=== PATIENT | female | born 1970 | race Caucasian/White ===

== ENCOUNTER 2022-06-14 07:54 | Day surgery (SDC) | payer BC ==
[~2022-06-14 07:54] MED LIST: Acetaminophen 325 MG Tab PO SCH; Bupivacaine 0.25% 10 ML SDV ONE; Lactated Ringers 1,000 ML IV SCH; Lidocaine 1%/Sod Bicarbonate in NS 8.4% 1 ML Syringe IDERM PRN; Morphine 8 MG, EPINEPHrine 0.3 MG, Cefuroxime 750 MG, Ketorolac 30 MG, Sodium Chloride ... PRN; Pregabalin 25 MG Cap PO SCH; Sodium Chloride 0.9% 10 ML Syringe FLUSH PRN; Sodium Chloride 0.9% 10 ML Syringe FLUSH SCH; Triamcinolone Acetonide 40 MG/ML 1 ML SDV ONE; oxyCODONE ER 10 MG TAB.ER PO SCH
[2022-06-14] MEDS ORDERED: Propofol 200 MG/20 ML SDV ONE ×2 (08:16)
[2022-06-14] MEDS ORDERED: ceFAZolin 2 GM Vial ONE (08:17)
[2022-06-14] MEDS ORDERED: fentaNYL 100 MCG/2 ML SDV ONE (08:17)
[2022-06-14] MEDS ORDERED: Lidocaine 1% 4 ML ONE (08:17)
[2022-06-14] MEDS ORDERED: Midazolam 1 MG/ML 2 ML SDV ONE (08:17)
[2022-06-14] MEDS ORDERED: Scopolamine 1.5 MG Transdermal Patch TRDERM ONE (08:25)
[2022-06-14] MEDS ORDERED: Lactated Ringers 1,000 ML ONE (09:20)
[2022-06-14] MEDS ORDERED: ePHEDrine 50 MG/ML SDV ONE (09:38)
[2022-06-14] MEDS ORDERED: Ondansetron 4 MG/2 ML SDV ONE (09:44)
[2022-06-14] MEDS ORDERED: Ketorolac 30 MG/ML SDV ONE (09:44)
[2022-06-14] MEDS ORDERED: Ondansetron 4 MG/2 ML SDV IVPUSH PRN (09:47)
[2022-06-14] MEDS ORDERED: fentaNYL 100 MCG/2 ML SDV IVPUSH PRN (09:47)
[2022-06-14] MEDS ORDERED: diphenhydrAMINE 50 MG/ML SDV IVPUSH PRN (09:47)
[2022-06-14] MEDS ORDERED: diphenhydrAMINE 50 MG/ML SDV ONE (09:48)
[2022-06-14] MEDS ORDERED: EPINEPHrine 1 MG/ML SDV ONE (10:44)
[2022-06-14] MEDS ORDERED: Ropivacaine 0.5% 5 MG/ML 30 ML SDV ONE (10:44)
[2022-06-14] MEDS ORDERED: oxyCODONE 5 MG Tab PO PRN (12:00)
[2022-06-14] MEDS ORDERED: Vancomycin 1 GM SDV ONE (13:21)
== END 2022-06-14 15:09 | disposition home or self-care (01) ==
LOC: JD.SDS 07:54
PROVIDERS: ATTEND Orthopaedic Surgery
DX: M17.12 Unilateral primary osteoarthritis, left knee (principal); Z96.651 Presence of right artificial knee joint
CPT/HCPCS: 73560; 97110; 97116; 97161; A9270; C1713; C1776; J0171; J0690; J0697; J1200; J1885; J2250; J2270; J2405; J2704; J2795; J3010; J3301; J3370; J3490; J7120; 01402; 64450; 76942